=== PATIENT | male | born 1980 | race African-American/Black ===

== ENCOUNTER 2024-11-22 16:36 | Emergency (ER) | payer OTHER ==
[2024-11-22] MEDS: traMADol 50 MG Tab PO STA (18:08)
== END 2024-11-22 18:19 | disposition home or self-care (01) ==
LOC: MW.ED 16:36
DX: M62.830 Muscle spasm of back (principal); Z75.8 Other problems related to medical facilities and other health care; V89.2XXA Person injured in unspecified motor-vehicle accident, traffic, initial encounter
CPT/HCPCS: 99283; A9270